=== PATIENT | female | born 1975 | race Caucasian/White ===

== ENCOUNTER → 2016-10-21 | Outpatient (CLI) | payer OTHER ==
[~2016-10-21] VITALS: Ht 157.5 cm; Wt 94.8 kg
[~2016-10-21] MED LIST: ADVAIR HFA115 MCG/21 INH; ALLEGRA ALLERG180 MG PO; AMITRIPTYLINE H10 M1 PO; BACTRIM DS TAB1 EACH PO; BENTYL 20 MG TA20 M1 PO; BUSPAR 5 MG TABL5 M1 PO; BUSPIRONE HCL10 MG PO; CELEXA20 MG PO; CENTRUM SILVER1 EAC4 PO; CLARITIN10 MG PO; CYMBALTA30 MG PO; DIFLUCAN150 MG PO; FLEXERIL PO; FLONASE 0.05%50 MCG NS; GABAPENTIN100 MG PO; GABAPENTIN600 M1 PO; GLUCOPHAGE1000 MG PO; IBUPROFEN 200200 M1 PO; KETOPROFEN75 MG PO; LIORESAL 10 MG10 MG PO; MACROBID 100 M100 M2 PO; MACRODANTIN100 MG PO; MAGOX 400400 MG PO; NEURONTIN 300300 M1 PO; NEURONTIN 300M300 M2 PO; NORCO 10-325 T1 EACH PO; NORCO 5-325 TA1 EACH PO; OMEPRAZOLE40 MG PO; ONDANSETRON HCL4 M2 PO; OXYCODONE-ACET1 EAC2 PO; PERCOCET 10-321 EACH PO; PRENATAL VITAM1 EAC6 PO; PRILOSEC40 MG PO; PROPRANOLOL 1010 M1 PO; RIZATRIPTAN10 MG PO; ROBAXIN 750 MG750 M1 PO; ROBAXIN500 MG PO; SPIRONOLACTONE25 M1 PO; VALIUM2 MG PO; VALIUM5 MG PO; VENTOLIN HFA 1818 GM INH; ZANAFLEX2 M1 PO; ZANAFLEX4 MG PO
--- NOTE | ~2016-10-21 | HPC ---
[facility] [place] [address] PAIN MANAGEMENT CONSULTATION Name: BRIA HOLT Room #: REG [facility].#: [id number] Admission: 10/21/16 Attend Phys: Ubaldo Kong MD Discharge: Date of : 75 Report #: [id number] THIS REPORT FOR: //name// CC: Megan Kong DATE OF SERVICE: 10/21/2016 FOLLOW UP COMPLAINT: Pain in the low back area down into her legs. Pain up above in my middle back. FOLLOWUP HISTORY: The patient is a 41-year-old female who has been followed in the pain clinic in the past because of myofascial pain, lumbar radicular pain and some thoracic pain. She returns today indicating that she has noted some increased pain in her upper back above the bra line. She also has pain in her low back and down into her legs. She rates her discomfort today as a 8/10. She describes it as numbness, sharp, constant, cracking, radiating pain and discomfort. In the upper back, she notes pain "all over her back". She also complains of some numbness she is experiencing in her feet. She has bilateral pain involving her buttocks. She notes some pain in the mid portion of her back, can sometimes radiate up into the area of the base of her skull. PHYSICAL EXAMINATION: Blood pressure 130/86, pulse 102, respiratory rate 16, room air saturations 100. The patient has pain and discomfort as described above. IMPRESSION: 1. Myofascial pain in the mid back area at approximately T5-T6 today. 2. History of lumbar radicular pain. RECOMMENDATIONS: We discussed treatment options with the patient. Risks and benefits of a trigger point injection to the affected myofascial trigger points was discussed. Possible complications were reviewed. The patient elects to proceed with a trigger point injection because of the increased pain and discomfort in the mid thoracic area in the midline at approximately T7-T6. Palpation in this area reproduces the patient's discomfort and she elects to undergo an injection at this area. PROCEDURE NOTE: The patient was placed in the sitting position. Her back was sterilely prepped with alcohol solution. A 25-gauge needle was then advanced into the area of discomfort. The patient states that this did reproduce a component of her pain and discomfort. There were no complications from the injection. Her pain decreased from a 8 to 5 after the procedure. A total of 10 mL of 0.5% bupivacaine and 40 mg triamcinolone was injected. The patient tolerated the procedure well. She remained in [place] [address] PAIN MANAGEMENT CONSULTATION Name: JONATHONBRIA JERRICA Room #: REG [facility] Sharan#: [id number] Admission: 10/21/16 Attend Phys: Ubaldo Kong MD Discharge: Date of : 75 Report #: [id number] appropriate amount of time. We would like to thank you for letting us participate in her care. We hope she continues to improve. <ELECTRONICALLY SIGNED> By: Ubaldo Kong MD 11/15/16 [id number] Ubaldo Kong MD /nt
[2016-10-21 10:25] VITALS: BP 130/86
== END | disposition home or self-care (01) ==
LOC: PAIN 10-11 06:06
DX: M79.1 Myalgia (principal); M54.16 Radiculopathy, lumbar region; G89.29 Other chronic pain; F17.210 Nicotine dependence, cigarettes, uncomplicated

== ENCOUNTER → 2016-12-26 | Outpatient (CLI) | payer OTHER ==
[~2016-12-26] VITALS: Ht 157.5 cm; Wt 94.9 kg
--- NOTE | ~2016-12-26 | HPC ---
[facility] [place] [address] PAIN MANAGEMENT CONSULTATION Name: BRIA HOTL Room #: REG MICHAELAnju Tsang#: [id number] Admission: 12/26/16 Attend Phys: Ubaldo Kong MD Discharge: Date of : 75 Report #: [id number] THIS REPORT FOR: //name// CC: Megan Kong DATE OF SERVICE: 12/26/2016 CHIEF COMPLAINT: My headache pains improved after the injection, but the propranolol made me nervous." FOLLOWUP HISTORY: The patient is a 41-year-old female who has been seen in the pain clinic because of chronic pain. She has a history of lumbar radicular pain. She notes that she is having more problems with her migraines. She finds that her medications can be helpful. She underwent two occipital nerve blocks at the last visit. She noticed that her headache pain over the last 6 weeks has been less problematic. She would like to proceed with another injection with the hopes that she would again even more benefit. She had no complication from the last injection. She has noticed some improvement in the pain in the area of her bra line. She still has bilateral pain involving her buttocks. She is having pain in the occipital area with pain radiating to the temporal area of her head bilaterally. IMPRESSION: 1. Myofascial pain improved after last trigger point injection in the area of T5-T6. 2. Migraine headaches -- improved after the last occipital injections. 3. History of lumbar radicular pain, which still remains problematic, but is helped with use of hydrocodone. PHYSICAL EXAMINATION: Blood pressure 119/63, pulse 83, respiratory rate 16, room air saturation 97%. The patient has pain and discomfort which is elicited with palpation in the area of the left and right occipital areas. RECOMMENDATIONS: The patient would like to proceed with another trigger point injection to the left and the right occipital areas. This was helpful and has decreased her migraine headaches over the last 6 weeks. We will proceed with another injection with local anesthetic and steroid. The patient will also try Flexeril. She feels that the baclofen which she has been on for greater than a year has lost its efficacy. PROCEDURE NOTE: Risks and benefits of the procedure were again reviewed with the patient. Possible complications were discussed. The patient elects to proceed. PROCEDURE NOTE: The patient was placed in the [place] [address] PAIN MANAGEMENT CONSULTATION Name: BRIA HOLT Room #: REG [facility] Sharan#: [id number] Admission: 12/26/16 Attend Phys: Ubaldo Kong MD Discharge: Date of : 75 Report #: [id number] area was sterilely prepped with chlorhexidine solution. After the trigger point areas were noted, the left area was then injected using a 25-gauge needle. The patient states this reproduced her discomfort. A total of 10 mL of 0.5% bupivacaine and 40 mg triamcinolone was injected. The contralateral side was treated in the like fashion and a 25-gauge needle was advanced into this area. A total of 10 mL of 0.5% bupivacaine and 40 mg triamcinolone was injected. The patient tolerated the procedure well. There were no complications. She will follow up in the future as needed. We would like to thank you for letting us participate in her care. We hope she continues to improve. By: [id number] Ubaldo Kong MD /nt
== END | disposition home or self-care (01) ==
LOC: PAIN 06:03
DX: M79.1 Myalgia (principal); G43.909 Migraine, unspecified, not intractable, without status migrainosus; M54.16 Radiculopathy, lumbar region

== ENCOUNTER → 2017-01-27 | Outpatient (CLI) | payer OTHER ==
[~2017-01-27] VITALS: Ht 157.5 cm; Wt 95.3 kg
--- NOTE | ~2017-01-27 | HPC ---
[facility] [place] [address] PAIN MANAGEMENT CONSULTATION Name: BRIA HOLT Room #: REG [facility] MDorys.#: [id number] Admission: 01/27/17 Attend Phys: Ubaldo Kong MD Discharge: Date of : 75 Report #: [id number] THIS REPORT FOR: //name// CC: Megan Kong DATE OF SERVICE: 01/27/2017 FOLLOWUP COMPLAINT: "My headaches have improved since the last injection. I have not had a headache for the last 3 weeks." FOLLOWUP HISTORY: The patient is a 41-year-old female who has been followed in the pain clinic because of myofascial pain, migraine headaches and history of lumbar radicular pain. She underwent a trigger point injection for the occipital neuralgia, which she is suffering. She noticed that her headache pain has changed. She has onset of the headache, but has not had one since the last injection. She feels that her current medications are continued to be helpful. She would like to proceed with the renewal of her medications. A script for ketoprofen 75 mg 1 p.o. t.i.d., cyclobenzaprine 10 mg 1 p.o. at bedtime, hydrocodone 10/325 one p.o. b.i.d., #60 and rizatriptan have been written, 15 of these pills were written. The patient will call us if she has any problems with her medications. We would like to thank you for letting us participate in her care. We hope she continues to improve. By: [id number] Ubaldo Kong MD /nt
[2017-01-27 10:08] VITALS: BP 117/74
== END ==
LOC: PAIN 06:47
DX: M54.16 Radiculopathy, lumbar region (principal); M79.1 Myalgia; G43.909 Migraine, unspecified, not intractable, without status migrainosus

== ENCOUNTER 2017-05-16 06:43 | Inpatient (IN) | payer OTHER ==
[2017-05-05 13:09] LABS: URINE BLOOD TRACE (Negative); URINE COLOR YELLOW; URINE GLUCOSE-RANDOM* NEGATIVE (Negative); URINE KETONES NEGATIVE (Negative); URINE LEUKOCYTES-REFLEX NEGATIVE (Negative); URINE PROTEIN (DIPSTICK) 1+ (Negative); URINE SPECIFIC GRAVITY 1.015 (1.003-1.035)
[2017-05-05 13:09] LABS: HEMATOCRIT 44.9 % (37.0-47.0); HEMOGLOBIN 15.2 gm/dL (12.0-15.0); MCHC 33.9 g/dL (28.0-37.0); MCV 91.5 fL (80.0-100.0); RBC 4.9 mil/uL (4.20-5.00)
[2017-05-05 13:16] LABS: ALBUMIN 3.3 g/dL (3.4-5.0); CALCIUM 8.7 mg/dL (8.5-10.1); CREATININE 0.7 mg/dL (0.6-1.0); POTASSIUM 4.3 mmol/L (3.5-5.1)
[2017-05-05 13:17] LABS: URINE BILIRUBIN NEGATIVE (Negative)
[2017-05-05 13:18] LABS: PROTIME 9.8 Seconds (9.3-11.4)
[2017-05-05 13:19] LABS: CASTS None Seen /LPF (None Seen); CRYSTALS None Seen /LPF (None Seen); SQUAMOUS 0-3 Few /LPF (0-3); URINE RBC 0-2 Rare /HPF (0-2); URINE WBC-REFLEX 0-5 Rare /HPF (0-5)
[2017-05-06 02:08] LABS: GLYCOHEMOGLOBIN (HGB A1C) 5.6 % (4.8-5.6)
[~2017-05-16] VITALS: Ht 157.5 cm; Wt 93.9 kg
--- NOTE | ~2017-05-16 | O ---
[facility] [place] [address] OPERATIVE REPORT Name: BRIA HOLT Room #: 150-8 ADM IN M.R.#: [id number] Admission: 05/16/17 Attend Phys: Eligio Kyle MD Discharge: Date of : 75 Report #: [id number] THIS REPORT FOR: //name// CC: AKHIL Kyle DATE OF SERVICE: 05/16/2017 PREOPERATIVE DIAGNOSIS: Right knee medial compartment degenerative joint changes. POSTOPERATIVE DIAGNOSIS: Right knee medial compartment degenerative joint changes. OPERATIVE PROCEDURE: Right knee unicompartmental knee replacement. SURGEON: Eligio Kyle MD WEIGHER AND GRADER: GABRIEL Romo ANESTHETIC: General. INDICATIONS: See hospital H and P. IMPLANTS UTILIZED: We used a [employer] [place] partial knee system. We used a small twin peg femoral component, a size B tibial tray and a 7 mm meniscal bearing insert. DESCRIPTION OF PROCEDURE: After adequate general anesthesia had been obtained, the patient's right lower extremity was prepped and draped in the usual meticulous sterile fashion. We gravity examined the leg and inflated the tourniquet to 350 torr. An anterior incision was made subq, divided sharply. Medial parapatellar incision was made. We excised a portion of the fatpad. We inspected the patellofemoral and lateral compartment, which were found to be normal and her ACL was intact. Osteophytes were removed with an osteotome and rongeur. We then placed the tibial cutting guide into position. The reciprocal and transverse cuts were made. We removed the tibial bone fragment. This was reviewed, was appropriate size for this patient and the tibial tray B fit well with the trial spacer. It appeared that either a 6 or 7 will be the most appropriate thickness. Her meniscus was excised prior to sizing. We then drilled the distal femur and placed the intramedullary guide. We placed the distal femoral guide into position and drilled the 2 distal femoral holes. Posterior femoral cutting guide was impacted in place and the posterior femoral cut was made. We then reamed with a 0 spigot the distal femur and removed [facility] [address] [place] [address] OPERATIVE REPORT Name: JONATHONBRIA JERRICA Room #: 150-8 ADM IN M.R.#: [id number] Admission: 05/16/17 Attend Phys: Eligio Kyle MD Discharge: Date of : 75 Report #: [id number] osteophytes and then placed the femoral trial. With the femoral trial in position, she had the best flexion gap with a 6 mm spacer and extension of the 1 mm spacer we had the best. So we then elected to remove 5 additional mm of the distal femur, which was done with the reamer and a 5 mm spigot. The trials were put back into position and indeed she had good flexion and extension gap with the 6 mm spacer. The tibial keel cut was then made. We irrigated copiously, placed the trial components in position, put the meniscal bearing in place. With the meniscal bearing in place, it appeared as though perhaps the 7 was a better fit, but we were planning to do a terminal trial once her permanent implants were in position. We then removed the trial components, drilled the distal femur, irrigated the knee, vacuum mixed the cement and then we cemented both the tibial and femoral component in position with care taken to remove excess cement. We put the 7 mm trial in position ____ fully cured. When the cement did fully cure, we trialled once again and indeed the 7 mm meniscal bearing unit gave us the best reapproximation in flexion and extension gap, so the trial was removed. Knee was irrigated copiously and the permanent implant put into position. At this time, we placed the knee at about 30 degrees of flexion. The retinacular repair was done with #1 Vicryl. This was reinforced with a running #1 Tevdek, subq closed with 2-0 Monocryl, skin closed with jami. Sterile compressive dressing was complied. Tourniquet then deflated. By: [id number] Eligio Kyle MD /zuly
[~2017-05-16 06:43] MED LIST changes: +DIPHENHIST50 MG PO; +FIBER500 MG PO; +FLONASE 0.05%50 MCG NASAL; +HYOSCYAMINE0.375 M1 PO; +METFORMIN HCL500 MG PO; +NEURONTIN600 MG PO; +NORPRAMIN10 MG PO; +OMEPRAZOLE-BIC1 EAC1 PO; +PHENERGAN 25 MG25 M1 PO
[2017-05-16 10:15] VITALS: BP 124/79
[2017-05-16 15:11] VITALS: BP 124/76
[2017-05-16 16:12] VITALS: BP 103/54
[2017-05-16 20:00] VITALS: BP 91/48
[2017-05-17] VITALS: BP 100/47
[2017-05-17 05:58] LABS: HEMATOCRIT 41.8 % (37.0-47.0); MCH 30.4 pg (26.0-34.0); MCHC 33.5 g/dL (28.0-37.0); MCV 90.7 fL (80.0-100.0); PLATELET COUNT 230 thou/uL (150-400); RBC 4.61 mil/uL (4.20-5.00); RDW 13.1 % (10.5-14.5); WBC 15.2 thou/uL (4.0-11.0)
[2017-05-17 06:02] LABS: MANUAL DIFF YES
[2017-05-17 06:04] LABS: CALCIUM 8.4 mg/dL (8.5-10.1); CREATININE 0.7 mg/dL (0.6-1.0); MAGNESIUM 1.8 mg/dL (1.8-2.4); POTASSIUM 4.4 mmol/L (3.5-5.1)
[2017-05-17 07:34] LABS: ABSOLUTE NEUTROPHILS 13.7 thou/uL (1.4-8.2); TOTAL CELL COUNT 100
[2017-05-17 07:35] LABS: ANISOCYTOSIS SLIGHT
[2017-05-17 08:00] VITALS: BP 103/58
[2017-05-17 08:25] VITALS: BP 103/58
[2017-05-17 14:31] VITALS: BP 103/58
[2017-05-17 17:17] VITALS: BP 100/52
[2017-05-17 20:00] VITALS: BP 118/57
[2017-05-18 04:16] LABS: HEMOGLOBIN 12.9 gm/dL (12.0-15.0); MCH 30.3 pg (26.0-34.0); MCHC 32.9 g/dL (28.0-37.0); MCV 92.1 fL (80.0-100.0); RBC 4.24 mil/uL (4.20-5.00); RDW 13.1 % (10.5-14.5); WBC 11.8 thou/uL (4.0-11.0)
[2017-05-18 04:30] VITALS: BP 107/77
[2017-05-18] MEDS ORDERED: XARELTO10 MG PO (06:51)
[2017-05-18] MEDS ORDERED: DILAUDID 2 MG TA2 MG PO (06:52)
[2017-05-18 07:30] VITALS: BP 131/74
[2017-05-18 10:41] VITALS: BP 103/58
[2017-05-18 11:46] VITALS: BP 103/58
== END 2017-05-18 13:23 | disposition home health service (06) | DRG 470 ==
LOC: TBA 06:43 → 4N 06:43 → PRE 08:44 → 4N 15:17
PROVIDERS: Nurse Practitioner; Orthopaedic Surgery
PROC: 0SRC0L9 Replacement of Right Knee Joint with Medial Unicondylar Synthetic Substitute, Cemented, Open Approach (ICD-10-PCS; principal; 2017-05-16)
DX: M17.11 Unilateral primary osteoarthritis, right knee (principal); E11.9 Type 2 diabetes mellitus without complications; F41.9 Anxiety disorder, unspecified; G89.29 Other chronic pain; F17.210 Nicotine dependence, cigarettes, uncomplicated; J45.909 Unspecified asthma, uncomplicated; G43.909 Migraine, unspecified, not intractable, without status migrainosus; M79.7 Fibromyalgia; K21.9 Gastro-esophageal reflux disease without esophagitis; Z90.49 Acquired absence of other specified parts of digestive tract; Z88.8 Allergy status to other drugs, medicaments and biological substances; Z79.899 Other long term (current) drug therapy; Z79.4 Long term (current) use of insulin; Z88.6 Allergy status to analgesic agent; Z88.1 Allergy status to other antibiotic agents; Z88.0 Allergy status to penicillin; Z91.040 Latex allergy status
CPT/HCPCS: 10790; 50010; 50101; 50415; 51130; 51225; 51320; 51412; 51771; 52001; 52056; 52282; 53078; 53370; 55262; 56525; 56527; 57095; 62110; 62900; 64043; 70005

== ENCOUNTER 2017-06-12 13:06 | Emergency (ER) | payer OTHER ==
[~2017-06-12] VITALS: Ht 157.5 cm; Wt 93.0 kg
[~2017-06-12 13:06] MED LIST changes: +DILAUDID 2 MG TA2 MG PO; +XARELTO10 MG PO
[2017-06-12] MEDS ORDERED: NORCO 5-325 TA1 EACH PO (15:36)
== END 2017-06-12 15:57 | disposition home or self-care (01) ==
LOC: ER 13:06
DX: S86.811A Strain of other muscle(s) and tendon(s) at lower leg level, right leg, initial encounter (principal); E11.9 Type 2 diabetes mellitus without complications; F32.9 Major depressive disorder, single episode, unspecified; F41.9 Anxiety disorder, unspecified; J45.909 Unspecified asthma, uncomplicated; K21.9 Gastro-esophageal reflux disease without esophagitis; K58.9 Irritable bowel syndrome, unspecified; G43.909 Migraine, unspecified, not intractable, without status migrainosus; F17.210 Nicotine dependence, cigarettes, uncomplicated; Z88.8 Allergy status to other drugs, medicaments and biological substances; Z88.6 Allergy status to analgesic agent; Z98.890 Other specified postprocedural states; Z90.89 Acquired absence of other organs; Z88.1 Allergy status to other antibiotic agents; Z91.040 Latex allergy status; Z88.0 Allergy status to penicillin; Z88.5 Allergy status to narcotic agent; X58.XXXA Exposure to other specified factors, initial encounter; Y93.89 Activity, other specified; Y92.89 Other specified places as the place of occurrence of the external cause; Y99.8 Other external cause status

== ENCOUNTER 2018-01-05 23:58 | Emergency (ER) | payer OTHER ==
[~2018-01-05] VITALS: Ht 157.5 cm; Wt 72.6 kg
[2018-01-06] MEDS ORDERED: NEURONTIN600 MG PO (00:25)
[2018-01-06 01:34] LABS: URINE BILIRUBIN NEGATIVE (Negative); URINE BLOOD NEGATIVE (Negative); URINE CLARITY CLEAR; URINE COLOR YELLOW; URINE GLUCOSE-RANDOM* NEGATIVE (Negative); URINE KETONES NEGATIVE (Negative); URINE LEUKOCYTES-REFLEX NEGATIVE (Negative); URINE NITRITE-REFLEX NEGATIVE (Negative); URINE PROTEIN (DIPSTICK) NEGATIVE (Negative); URINE SPECIFIC GRAVITY 1.025 (1.005-1.035); URINE UROBILINOGEN 0.2 E.U./dl (0.2-1.0)
== END 2018-01-06 01:35 | disposition home or self-care (01) ==
LOC: ER 23:58
PROVIDERS: Emergency Medicine
DX: S80.01XA Contusion of right knee, initial encounter (principal); E11.9 Type 2 diabetes mellitus without complications; F41.9 Anxiety disorder, unspecified; F32.9 Major depressive disorder, single episode, unspecified; J45.909 Unspecified asthma, uncomplicated; G43.909 Migraine, unspecified, not intractable, without status migrainosus; F17.210 Nicotine dependence, cigarettes, uncomplicated; Z90.49 Acquired absence of other specified parts of digestive tract; Z96.651 Presence of right artificial knee joint; Z88.6 Allergy status to analgesic agent; Z88.1 Allergy status to other antibiotic agents; Z91.040 Latex allergy status; Z88.0 Allergy status to penicillin; Z88.5 Allergy status to narcotic agent; Z88.8 Allergy status to other drugs, medicaments and biological substances; W18.39XA Other fall on same level, initial encounter; Y93.89 Activity, other specified; Y92.89 Other specified places as the place of occurrence of the external cause; Y99.8 Other external cause status